=== PATIENT | female | born 1965 | race Caucasian/White ===

== ENCOUNTER → 2017-07-15 | Day surgery (SDC) | payer OTHER ==
[~2017-07-15] VITALS: Ht 175.3 cm; Wt 68.0 kg
[~2017-07-15] MED LIST: FLEXERIL10 MG PO; LIDODERM 5% PAT1 PAT TP; PERCOCET 325 MG1 TA2 PO; VALIUM5 M1 PO
--- NOTE | 2017-07-15 09:52 | Operative Report ---
Operative/Inv Procedure Report Surgery Date: 07/15/17 Name of Procedure: #1. Left shoulder arthroscopic distal clavicle excision #2. Left shoulder R scopic subacromial decompression and acromioplasty Pre-Operative Diagnosis: Left shoulder impingement Post-Operative Diagnosis: Same Estimated Blood Loss: scant Surgeon/Drug Abuse Program Coordinator: Lucy JONES,Siva Wong Anesthesia: general endotracheal tube IV Fluids: See anesthesia record Implants: None Specimens: None Complications: None Condition: Stable Operative Indication: Patient's a 50-year-old female with chronic left shoulder pain. She had an MRI which showed tendinosis of the supraspinous tendon. There is also moderate acromioclavicular joint arthritis. She failed conservative treatment is indicated for surgical arthroscopy of the shoulder to wrist and benefits the procedure discussed the patient detail. A skilled set hands was necessary provided by physician oral surgery assistant Stephen Wong who aided with limb positioning as well as camera positioning throughout the case. Operative/Procedure Note Note: Once informed consent was obtained and the correct limb was identified patient brought to operative room placed on table supine position. After administration of general endotracheal anesthesia and the patient was placed in a beachchair position for shoulder arthroscopy. Left upper extremity was prepped and draped usual sterile fashion. To begin the procedure standard posterior arthroscope portals made and the scope was introduced. Diagnostic arthroscopy of the glenoid humeral joint was done. The glenoid was intact with no evidence of arthritis. The humeral head was intact. Subscapularis tendon was intact. The biceps tendon and biceps anchor were intact. Anterior and posterior labrum were intact. The articular surface of the supraspinous and infraspinous tendon were intact with no full-thickness tears. There was a negative drive-through sign. There are no loose bodies in the inferior pouches. An anterior portal was made lateral to the coracoid process and a shaving device was brought into the joint. Minimal debridement was performed of synovial tissue which was inflamed. The rotator cuff was probed the probe and found to be completely attached. At this point the scope was brought into the subacromial space and a lateral portal was made under direct visualization. Cautery device was brought into the subacromial space and bursa and soft tissue removed from the bursal surface of the superficial tendon as well as the undersurface of the acromion and acromial clavicular joint was cleaned out of soft tissue. Using a 5.5 ultra cut device and acromioplasty was performed through the lateral portal without complication. The 5.5 ultra cut device was then placed through the anterior portal and the distal clavicle resection performed with 10 mm of bone being resected from the distal clavicle. The distal clavicle and acromion process were co-planed. The shoulder was taken through a range of motion and there was adequate space without any evidence of impingement. The remainder of the bursectomy was then performed with a 4.2 full-radius shaver. The bursal surface of the rotator cuff supraspinous tendon was probed and there were no defects found. At this point the shoulder was irrigated and the entrance removed. The portals were closed with 3-0 nylon interrupted sutures and a sterile dressing and sling was applied. The patient was taken recovery in stable condition.
== END ==
LOC: STS 02:40
DX: M25.812 Other specified joint disorders, left shoulder (principal); M13.812 Other specified arthritis, left shoulder; F17.200 Nicotine dependence, unspecified, uncomplicated
CPT/HCPCS: C9290; J0131; J0171; J2250; J3490